=== PATIENT | female | born 1995 | race Caucasian/White ===

== ENCOUNTER 2018-01-21 12:04 | Emergency (ER) | payer SELFPAY ==
--- NOTE | 2018-01-21 14:27 | EDPHYS ---
Physician Documentation [facility] Name: Silvina Albert Age: 22 yrs Sex: Female : 1995 Arrival Date: 01/21/2018 Time: 12:05 Bed 13 Private MD: ED Physician Ricardo Walker HPI: 01/21 14:19 This 22 yrs old Female presents to ER via Ambulatory with complaints of kb Fever, Pain All Over. 14:19 The patient reports fever, that was measured at 102 degrees Fahrenheit, with an kb emergency department temperature of 99.0 degrees Fahrenheit. Onset: The symptoms/episode began/occurred last night. Modifying factors: there are no obvious modifying factors. Associated signs and symptoms: Pertinent positives: bodyaches. Severity of symptoms: At their worst the symptoms were moderate in the emergency department the symptoms have improved. The patient has not experienced similar symptoms in the past. The patient has not recently seen a physician. 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 - Social history:: Smoking status: Patient uses tobacco products, smokes one pack cigarettes per day. ROS: 14:19 ENT: Negative for injury, pain, and discharge, Neck: Negative for injury, pain, and kb swelling, Cardiovascular: Negative for chest pain, palpitations, and edema, Respiratory: Negative for shortness of breath, cough, wheezing, and pleuritic chest pain, Abdomen/GI: Negative for abdominal pain, nausea, vomiting, diarrhea, and constipation, Back: Negative for injury and pain, MS/Extremity: Negative for injury and deformity, Skin: Negative for injury, rash, and discoloration, Neuro: Negative for headache, weakness, numbness, tingling, and seizure. 14:19 Constitutional: Positive for body aches, fever, malaise, Negative for chills, fatigue, poor PO intake, weight loss. Exam: 14:19 Constitutional: This is a well developed, well nourished patient who is awake, alert, kb and in no acute distress. Head/Face: Normocephalic, atraumatic. Neck: Trachea midline, no thyromegaly or masses palpated, and no cervical lymphadenopathy. Supple, full range of motion without nuchal rigidity, or vertebral point tenderness. No Meningismus. Chest/axilla: Normal chest wall appearance and motion. Nontender with no deformity. No lesions are appreciated. Cardiovascular: Regular rate and rhythm with a normal S1 and S2. No gallops, murmurs, or rubs. Normal PMI, no JVD. No pulse deficits. Respiratory: Lungs have equal breath sounds bilaterally, clear to auscultation and percussion. No rales, rhonchi or wheezes noted. No increased work of breathing, no retractions or nasal flaring. Abdomen/GI: Soft, non-tender, with normal bowel sounds. No distension or tympany. No guarding or rebound. No evidence of tenderness throughout. Skin: Warm, dry with normal turgor. Normal color with no rashes, no lesions, and no evidence of cellulitis. MS/ Extremity: Pulses equal, no cyanosis. Neurovascular intact. Full, normal range of motion. Neuro: Awake and alert, GCS 15, oriented to person, place, time, and situation. Cranial nerves II-XII grossly intact. Motor strength 5/5 in all extremities. Sensory grossly intact. Cerebellar exam normal. Normal gait. 14:19 ENT: External ear(s): are unremarkable, Ear canal(s): are normal, TM's: are normal, Nose: is normal, Mouth: is normal, Posterior pharynx: Airway: normal, no evidence of obstruction, Tonsils: are normal in appearance, Uvula: normal, midline, swelling, is not appreciated, erythema, that is moderate. Vital Signs: 12:14 Pulse 114; Resp 19; Temp 99.0(O); Pulse Ox 100% on R/A; Weight 54.43 kg; Height 5 ft. 3 la1 in. (160.02 cm); 12:14 la1 13:08 BP 101 / 69; Pulse 94; Resp 17; Pulse Ox 100% on R/A; mh5 14:20 BP 96 / 62 LA Sitting (auto/reg); Pulse 86; Resp 18; Temp 99.0; Pulse Ox 100% on R/A; sg Pain 10/10; 12:14 Body Mass Index 21.26 (54.43 kg, 160.02 cm) la1 12:14 Unable to obtain BP, as cuff began inflating pt began screaming "ow that hurts, take it la1 off, take if off" attempted placement of BP cuff on leg, pt refuses, states pain is everywhere. MDM: 12:23 Patient medically screened. kb 14:19 Data reviewed: vital signs, nurses notes. Data interpreted: Pulse oximetry: on room air kb is 100 %. Interpretation: normal. Counseling: I had a detailed discussion with the patient and/or guardian regarding: the historical points, exam findings, and any diagnostic results supporting the discharge/admit diagnosis, lab results, the need for outpatient follow up, a family practitioner, to return to the emergency department if symptoms worsen or persist or if there are any questions or concerns that arise at home. 01/21 12:36 Order name: [place] Screen Profile; Complete Time: 13:32 kb 01/21 12:36 Order name: Flu; Complete Time: 13:26 kb 01/21 12:36 Order name: Strep; Complete Time: 13:26 kb 01/21 13:26 Order name: Throat Culture [facility] 01/21 14:26 Order name: Urine Dipstick--Ancillary (enter results) 01/21 14:26 Order name: Urine --Ancillary (enter results) 01/21 13:33 Order name: Urine Dipstick-Ancillary (obtain specimen); Complete Time: 14:24 kb Administered Medications: No medications were administered Disposition: 15:33 Co-signature as Attending Physician, Ricardo Walker MD I agree with the assessment and kdr plan of care. Disposition: 01/21/18 14:26 Discharged to Home. Impression: Fever, unspecified. - Condition is Stable. - Discharge Instructions: Viral Infections, [id number], Fever, Adult, [id number]. - Work release form, Medication Reconciliation Form, Thank You Letter, Antibiotic Education, Prescription Opioid Use form. - Follow up: Emergency Department; When: As needed; Reason: Worsening of condition. Follow up: Private Physician; When: 2 - 3 days; Reason: Recheck today's complaints, Continuance of care, Re-evaluation by your physician. Signatures: Dispatcher [employer] [facility] Pastora Nascimento, DIGITAL MUSIC INSTRUCTOR-C WALI-Ricardo Reynolds MD MD kdr Munoz, Edgar, SALES ORDER PROCESSOR SALES ORDER PROCESSOR Rashard Layne, RN RN la1
--- NOTE | 2018-01-21 14:27 | ER ---
Nurse's Notes [facility] Name: Silvina Albert Age: 22 yrs Sex: Female : 1995 Arrival Date: 01/21/2018 Time: 12:05 Bed 13 Private MD: Diagnosis: Fever, unspecified Presentation: 01/21 12:13 Presenting complaint: Patient states: my whole body hurts, I have had a fever since la1 yesterday and they had to give me half of a xanax to even sleep last night, pt states fever at home, ibuprofen taken at 0830. Transition of care: patient was not received from another setting of care. Onset of symptoms was January 21, 2018. Care prior to arrival: None. 12:13 Method Of Arrival: Ambulatory la1 12:13 Acuity: NOY 4 la1 Triage Assessment: 13:00 General: Appears in no apparent distress. uncomfortable, well groomed, well developed, sg well nourished, Behavior is calm, cooperative, appropriate for age. 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 - Social history:: Smoking status: Patient uses tobacco products, smokes one pack cigarettes per day. Screenin:00 Abuse screen: Denies threats or abuse. Denies injuries from another. Nutritional sg screening: No deficits noted. Tuberculosis screening: No symptoms or risk factors identified. Never had TB. Fall Risk None identified. Assessment: 13:00 General: Appears in no apparent distress. comfortable, well groomed, well developed, sg well nourished, Behavior is calm, cooperative, appropriate for age. Pain: Complains of pain in all over her body Quality of pain is described as aching. Neuro: No deficits noted. Cardiovascular: Heart tones S1 S2 present Capillary refill is brisk in bilateral fingers Patient's skin is warm and dry. Chest pain is denied. Respiratory: Airway is patent Respiratory effort is even, unlabored, Respiratory pattern is regular, symmetrical, Breath sounds are clear. GI: No signs and/or symptoms were reported involving the gastrointestinal system. : No signs and/or symptoms were reported regarding the genitourinary system. EENT: No deficits noted. Derm: Skin is pink, warm \\T\\ dry. Musculoskeletal: No deficits noted. Vital Signs: 12:14 Pulse 114; Resp 19; Temp 99.0(O); Pulse Ox 100% on R/A; Weight 54.43 kg; Height 5 ft. 3 la1 in. (160.02 cm); 12:14 la1 13:08 BP 101 / 69; Pulse 94; Resp 17; Pulse Ox 100% on R/A; mh5 14:20 BP 96 / 62 LA Sitting (auto/reg); Pulse 86; Resp 18; Temp 99.0; Pulse Ox 100% on R/A; sg Pain 10/10; 12:14 Body Mass Index 21.26 (54.43 kg, 160.02 cm) la1 12:14 Unable to obtain BP, as cuff began inflating pt began screaming "ow that hurts, take it la1 off, take if off" attempted placement of BP cuff on leg, pt refuses, states pain is everywhere. ED Course: 12:05 Patient arrived in ED. tw3 12:14 Triage completed. la1 12:15 Arm band placed on left wrist. la1 12:23 Pastora Nascimento FNP-C is PHCP. kb 12:23 Ricardo Walker MD is Attending Physician. kb 12:43 Ronaldo Frances, KEIRA is Primary Nurse. sg 13:00 Patient has correct armband on for positive identification. Placed in gown. Bed in low sg position. Side rails up X2. Pulse ox on. NIBP on. Head of bed elevated. 13:03 Initial lab(s) drawn, by nh, sent to lab. Flu and/or RSV swab sent to lab. Strep swab mh5 sent to lab. Inserted saline lock: 22 gauge in right antecubital area, using aseptic technique. Blood collected. 13:04 Strep Sent. mh5 13:04 Flu Sent. mh5 13:04 [place] Screen Profile Sent. 5 14:26 Throat Culture Sent. ag 14:40 No provider procedures requiring assistance completed. IV discontinued, intact, sg bleeding controlled, No redness/swelling at site. Pressure dressing applied. Administered Medications: No medications were administered Outcome: 14:26 Discharge ordered by . kb 14:40 Discharged to home ambulatory. sg 14:40 Condition: good 14:40 Discharge instructions given to patient, Instructed on discharge instructions, follow up and referral plans. safety practices, Demonstrated understanding of instructions, follow-up care. 14:45 Patient left the ED. em Signatures: Pastora Nascimento, WALI-C WALI-Ronaldo Willson, RN RN Juancarlos Jimenez, SKIN FORMER SKIN FORMER em Rashard Benedict RN RN la1 Virgilio, Daja Osborne [facility]5 Davidson, Leslee tw3
[2018-01-21 14:50] VITALS: TEMP 99; O2SAT 100
[2018-01-21 14:51] VITALS: BP 101/69
[2018-01-21 18:17] LABS: Urine Blood TRACE (NEG); Urine Glucose NEGATIVE (NEG); Urine Protein NEGATIVE (NEG); Urine pH 6.5 (5.0-7.0)
== END 2018-01-21 14:45 | disposition home or self-care (01) ==
LOC: ER 12:04
DX: R50.9 Fever, unspecified (principal); F17.210 Nicotine dependence, cigarettes, uncomplicated
CPT/HCPCS: 36415; 81003; 81025; 86308; 87070; 87081; 87804; 99284

== ENCOUNTER 2023-02-18 18:29 | Emergency (ER) | payer OTHER, SELFPAY ==
--- OUTSIDE RECORDS SUMMARY | 2023-02-18 18:33 | XMS REPORT | Continuity of Care Document ---
:1995 Author Organization [facility] t Address [address] [facility] [address] [place] [address] Care Team Providers Name Role Phone Pcp, Patient Does Not Have A Primary Care Physician [phone] MAKENZIE SANTAMARIA Attending Clinician Unavailable Makenzie Santamaria MD Attending Clinician Jacob Metz Attending Clinician Unknown, Attending Attending Clinician Unavailable JACOB ODONNELL Attending Clinician Unavailable Doctor Unassigned, [place] Attending Clinician Unavailable Doug Massey MD Attending Clinician DOUG MASSEY Attending Clinician Unavailable Xander Hickey MD Attending Clinician [phone], Lkj Nst Room Attending Clinician Unavailable Room, [facility] Nst Attending Clinician Unavailable Ultrasound, Ang-Mfm Attending Clinician Unavailable Anatoly Moses MD Attending Clinician Naeem Wong MD Attending Clinician ANATOLY MOSES Attending Clinician Unavailable ANATOLY MOSES Attending Clinician Unavailable Pob, [facility] Main Attending Clinician Unavailable Alvin Simmons MD Attending Clinician [facility]ending Clinician [phone] LULA BETH Attending Clinician Unavailable Zaina Martino MD Attending Clinician Gilbert Faustin MD Attending Clinician UNKNOWN, ATTENDING Attending Clinician Unavailable Linda Thorpe MD Attending Clinician [phone] Pob1, Acute Care Clinic Attending Clinician Unavailable [place] Bhardwaj Attending Clinician MAINE LEWIS Attending Clinician Unavailable Pcp, Patient Does Not Have A Attending Clinician [phone] SB LARKIN Attending Clinician Unavailable Sb Larkin MD Attending Clinician DOUG MASSEY Admitting Clinician Unavailable Doug Massey MD Admitting Clinician SB LARKIN Admitting Clinician Unavailable Payers Payer Name Policy Type Policy Number Effective Date Expiration Date [facility] [id number] 2020 [facility] [place] [facility] MEDICAID 00:00:00 Problems Condition Condition Condition Status Onset Resolution Last Treating Co mments Source Name Details Category Date Date Treatment Clinician Date Alpha Alpha Disease Active Univers thalassemi thalassemi 5-25 it y of a silent a silent 00:00: [place] carrier carrier [address] [place] [address] Multiparit Multiparit Disease Active 2019-10 U nivers y y 2-31 ity of 00:00: [address] Vaginal Vaginal Disease Active Overview: Univ ers odor odor 4-21 Formattin ity of 00:00: g of this [place] [address] note Medical might be Branch different from the original. ICD10 Diagnosis Term Feather Mixer Utility Allergies, Adverse Reactions, Alerts Allergy Allergy Status Severity Reaction(s) Onset Inactive Treating Comm ents Source Name Type Date Date Clinician NO KNOWN Drug Active Univers ALLERGIE Class ity of S [facility] Social History Social Habit Start Date Stop Date Quantity Comments Source History of Cigarette Smoker Universi ty of tobacco use [facility] Exposure to 2022-11-01 2022-11-11 Not sure [facility] SARS-CoV-2 00:00:00 10:00:00 [facility] (event) [place] Alcohol intake 2021-07-17 2021-07-17 Ex-drinker [facility] 00:00:00 00:00:00 (finding) [facility] Tobacco use and 2021-02-03 2021-02-03 Smokeless tobacco Un iversity of exposure 00:00:00 00:00:00 non-user [facility] Tobacco Comment 2021-02-03 2021-02-03 smokes 1 x per Unive rsity of 00:00:00 00:00:00 day [facility] Sex Ass[birth year] At [birth year] Universit y of 00:00:00 00:00:00 [facility] Smoking Status Start Date Stop Date Source Smokes tobacco daily 2021-02-03 00:00:00 Univers ity of [facility] Medications Ordered Filled Start Stop Current Ordering Indication Dosage Frequency Signature Comments Components Source Medication Medication Date Date Medication? Clinician (SIG) Name Name cephALEXin 2022- No [id number] 500mg Take 1 Univers (KEFLEX) 11-11 capsule by ity of 500 mg 00:00: 05:59 mouth 4 [place] capsule 00 :00 (four) Medical times Branch daily for 10 days. metroNIDAZO 2020- No [id number] 500mg Take 1 Univers LE 500 mg 06-29 tablet by ity of tablet 00:00: 04:59 mouth [place] 00 :00 every 12 Medical (twelve) Branch hours for 7 days. ibuprofen Yes [id number] 600mg Take 1 Univers 600 mg 8-29 102 tablet by ity of tablet 00:00: mouth [place] 00 every 6 Medical (six) Branch hours as needed (Pain). Take with food or milk. ibuprofen Yes [id number] 600mg Take 1 Univers 600 mg 8-29 102 tablet by ity of tablet 00:00: mouth [place] 00 every 6 Medical (six) Branch hours as needed (Pain). Take with food or milk. ibuprofen Yes [id number] 600mg Take 1 Univers 600 mg 8-29 102 tablet by ity of tablet 00:00: mouth [place] 00 every 6 Medical (six) Branch hours as needed (Pain). Take with food or milk. ibuprofen Yes [id number] 600mg Take 1 Univers 600 mg 8-29 102 tablet by ity of tablet 00:00: mouth [place] 00 every 6 Medical (six) Branch hours as needed (Pain). Take with food or milk. ibuprofen Yes [id number] 600mg Take 1 Univers 600 mg 8-29 102 tablet by ity of tablet 00:00: mouth [place] 00 every 6 Medical (six) Branch hours as needed (Pain). Take with food or milk. PNV 67-iron 2020-1 Yes [id number] 1{each} Take 1 Univers ps-folate 2-31 Each by ity of no.1-dha 00:00: mouth [place] (VITAFOL 00 daily. Medical ULTRA) 29 Branch mg iron- 1 mg-200 mg Cap PNV 67-iron 2020-1 Yes [id number] 1{each} Take 1 Univers ps-folate 2-31 Each by ity of no.1-dha 00:00: mouth [place] (VITAFOL 00 daily. Medical ULTRA) 29 Branch mg iron- 1 mg-200 mg Cap PNV 67-iron 2020- Yes [id number] 1{each} Take 1 Univers ps-folate 2-31 Each by ity of no.1-dha 00:00: mouth [place] (VITAFOL 00 daily. Medical ULTRA) 29 Branch mg iron- 1 mg-200 mg Cap PNV 67-iron 2020- Yes [id number] 1{each} Take 1 Univers ps-folate 2-31 Each by ity of no.1-dha 00:00: mouth [place] (VITAFOL 00 daily. Medical ULTRA) 29 Branch mg iron- 1 mg-200 mg Cap PNV 67-iron 2020- Yes [id number] 1{each} Take 1 Univers ps-folate 2-31 Each by ity of no.1-dha 00:00: mouth [place] (VITAFOL 00 daily. Medical ULTRA) 29 Branch mg iron- 1 mg-200 mg Cap Immunizations Ordered Filled Immunization Date Status Comments [facility] e Immunization Name Name PPD (TB) 2012-05-16 Completed University of 00:00:00 [facility] PPD (TB) 2012-05-16 Completed University of 00:00:00 [facility] Td 2012-04-30 Completed University of 00:00:00 [facility] Td 2012-04-30 Completed University of 00:00:00 [facility] TD, NOS 2012-04-30 Completed University of 00:00:00 [facility] TD, NOS 2012-04-30 Completed University of 00:00:00 [facility] TD, NOS 2012-04-30 Completed University of 00:00:00 [facility] Vital Signs Vital Name Observation Time Observation Value Comments Source Systolic blood 2022-11-11 16:05:00 102 mm[Hg] Univer sity of pressure [facility] Diastolic blood 2022-11-11 16:05:00 70 mm[Hg] Unive rsity of pressure [facility] Heart rate 2022-11-11 16:05:00 88 /min [facility] Body temperature 2022-11-11 16:05:00 37.17 Abigail [facility] Respiratory rate 2022-11-11 16:05:00 17 /min [facility] Body height 2022-11-11 16:05:00 157.5 cm [facility] Body weight 2022-11-11 16:05:00 58.695 kg [facility] BMI 2022-11-11 16:05:00 23.67 kg/m2 [facility] Oxygen saturation in 2022-11-11 16:05:00 98 /min [facility] Arterial blood by [place] [facility] Pulse oximetry [place] Procedures Procedure Date / Time Performed Performing Clinician Sour e ASSIGNMENT OF BENEFITS 2022-11-11 15:59:53 Doctor Unassigned, No [facility] Encounters Start End Encounter Admission Attending Care Care Encounter Source Date/Time Date/Time Type Type Clinicians Facility Department ID 2021-08-09 Outpatient P [facility] EMILI [id number] Univers 22:05:31 ity of [facility] 2021-08-09 Emergency [facility] [id number] Univers 22:04:22 ity of [facility] 2022-12-13 2022-12-13 Gayle Santamaria [facility] [id number] Univers 00:00:00 00:00:00 [facility] 350.1.13.10 it y of [place] 4.2.7.2.686 [place] [facility] - [phone] Med ical [facility] 419 Branch 2022-11-11 2022-11-11 Urgent Jacob Odonnell [facility] 1.2.840.114 [id number] Univers 09:40:00 10:00:00 Care Unknown, Attending HEALTH 350.1.13.10 ity of [place] 4.2.7.2.686 Lg as HANNA?BLEA [phone] Ne alison [address] MEDICAL OFFICE BUILDING 2022-11-11 2022-11-11 [facility] [id number] Univers 09:40:00 09:40:00 RANIA ity of [facility] 2022-11-11 2022-11-11 Orders Doctor GHISLAINE 1.2.840.114 [id number] Univers 00:00:00 00:00:00 Only Unassigned, [place] DELIA 350.1.13.10 ity of [place] [facility] 4.2.7.2.686 Lg as [id number] [address] 2022-01-10 2022-01-10 Orders Doctor GHISLAINE 1.2.840.114 [id number] Univers 00:00:00 00:00:00 Only Unassigned, [place] DELIA 350.1.13.10 ity of [place] [facility] 4.2.7.2.686 Lg as [id number] [address] 2022-01-06 2022-01-06 Telephone Doug Massey [facility] 1.2.840.11 [id number] Univers 00:00:00 00:00:00 AZAM 350.1.13.10 it y of WOM[place] 4.2.7.2.686 [place] [id number] [address] 2021-12-24 2021-12-24 Telephone Doug Massey [facility] 1.2.840.11 [id number] Univers 00:00:00 00:00:00 AZAM 350.1.13.10 it y of W[place] 4.2.7.2.[place] [id number] [address] 2021-12-24 2021-12-24 Orders Doctor GHISLAINE 1.2.840.114 [id number] Univers 00:00:00 00:00:00 Only Unassigned, AL[place] DELIA 350.1.13.10 ity of [place] [facility] 4.2.7.2.686 Lg as [id number] [address] 2021-12-21 2021-12-21 Telephone Doug Massey [facility] 1.2.840.11 [id number] Univers 00:00:00 00:00:00 AZAM 350.1.13.10 it y of W[place] 4[place]2.[place].2.[place] [id number] [address] 2021-07-17 2021-07-17 Routine Doug Massey MDHARVEY 1.2.840.114 [id number] Univers 10:00:24 10:15:24 [place] 350.1.13.10 ity of Visit [place] 4.2.7.2.686 Lga s Professio [phone] Ne dical [address] 2021-07-17 2021-07-17 Outpatient R DOUG MASSEY [facility] [id number] Univers 10:15:00 10:15:00 ity of [facility] 2021-07-16 2021-07-16 Outpatient R DOUG MASSEY [facility] [id number] Univers 13:00:00 13:00:00 ity of [facility] 2021-06-29 2021-06-29 Case Doug Massey 1.2.840.114 [id number] Univers 00:00:00 00:00:00 Management AZAM 350.1.13.10 [place]2.[place] [facility] [id number] [address] 2021-06-29 2021-06-29 Patient Doug Massey 1.2.840.114 [id number] Univers 00:00:00 00:00:00 Secure Msg [place] 350.1.13.10 it[place]2.[place] [facility] [phone] [address] 2021-06-25 2021-06-25 Routine Doug Massey 1.2.840.114 [id number] Univers 13:45:41 14:27:38 [place] 350.1.13.10 i ty of Visit Women's [place].2.7.2.686 [place] [id number] [address] 2021-06-25 2021-06-25 Outpatient R DOUG MASSEY [facility] [id number] Univers 13:45:00 13:45:00 ity of [facility] 2021-06-05 2021-06-07 Hospital Doug Massey [facility] 1.2.840.114 [id number] Univers 10:27:00 12:40:00 Encounter [place] 350.1.13.10 ity of [place] 4.2.7.2.686 [place] [id number] [place] [id number] Branch 2021-06-05 2021-06-07 Hospital [place] Massey [place] 1.2.840.114 [id number] Univers 10:27:00 12:40:00 Encounter [place] 350.1.13.10 ity of [place].2.7.2.686 [place] [phone] [place] [address] Branch 2021-06-05 2021-06-05 Anesthesia Alquicira-M [facility] 1.2.840.114 [id number] Univers 18:36:00 23:42:00 Event Neftali dillon 350.1.13.10 i ty of [place] 4.2.7.2.686 Lg as [place] [id number] [place] [address] Branch 2021-06-05 2021-06-05 Anesthesia Alquicira-M [facility] 1.2.840.114 [id number] Univers 18:36:00 23:42:00 Event santanaNeftali romero 350.1.13.10 i ty of [place] 4.2.7.2.686 Lg as [place] [id number] [address] 2021-06-05 2021-06-05 Orders Doctor GHISLAINE 1.2.840.114 [id number] Univers 00:00:00 00:00:00 Only Unassigned, [place] DELIA 350.1.13.10 ity of [place] [facility] 4.2.7.2.686 Lg as [id number] [address] 2021-06-05 2021-06-05 Orders Doctor SCANLON 1.2.840.114 [id number] Univers 00:00:00 00:00:00 Only Unassigned, [place] DELIA 350.1.13.10 ity of [place] [facility] 4.2.7.2.686 Lg as [phone] [address] 2021-06-04 2021-06-04 Routine 1, Yeimi Nst Room [facility] 1.2.840. 114 [id number] Univers 10:00:36 10:53:02 Doug Massey 350.1.13.10 ity of Visit Women's [place].2.[place] [id number] [address] 2021-06-04 2021-06-04 Routine 1, Lkj Nst Room [facility] 1.2.840. 114 [id number] [facility] 10:00:36 10:53:02 Doug Massey 350.1.13.10 ity of Visit Women's [place].2.[place].2.[place] [id number] [address] 2021-06-04 2021-06-04 Outpatient R [facility] [id number] Univers 10:00:00 10:00:00 ity of [facility] 2021-06-02 2021-06-02 Outpatient R DOUG MASSEY [facility] [id number] Univers 11:15:00 11:15:00 ity of [facility] 2021-06-02 2021-06-02 Outpatient R [facility] [id number] Univers 11:00:00 11:00:00 ity of [facility] 2021-06-02 2021-06-02 Outpatient R DOUG MASSEY [facility] [id number] Univers 11:00:00 11:00:00 ity of [facility] 2021-06-02 2021-06-02 Routine Room, [facility] 1.2.840.1 [id number] Univers 10:04:40 10:19:40 Doug Massey 350.1.13.10 ity of [place].2.[place] Profess[place] [phone] Ne dical nal [address] [place] [address] 2021-06-02 2021-06-02 Routine Room, [facility] 1.2.840.1 [id number] Univers 10:04:40 10:19:40 Doug Massey 350.1.13.10 ity of [place] 4.[place].2.[place] Profess[place] [phone] Ne dical nal [address] [place] [address] 2021-05-28 2021-05-28 Routine Room, [facility] 1.2.840.1 [id number] Univers 10:41:38 11:33:16 Doug Massey 350.1.13.10 ity of Visit [place] Profess[place] [phone] Ne dical [address] 2021-05-28 2021-05-28 Outpatient R DOUG MASSEY [facility] [id number] Univers 11:15:00 11:15:00 ity [facility] 2021-05-28 2021-05-28 Outpatient R [facility] [id number] Univers 11:00:00 [facility] 2021-05-26 2021-05-26 Routine Doug Massey [facility] Daily 1.2.840.114 [id number] Univers 11:06:06 12:09:19 [place] 350.1.13.10 i ty of Visit Women's 4.2.[place].2.686 [place] [id number] [address] 2021-05-26 2021-05-26 Outpatient R DOUG MASSEY [facility] [id number] Univers 11:15:00 [facility]:15[facility]00 [facility] 2021-05-21 2021-05-21 Outpatient R DOUG MASSEY [facility] [id number] Univers 11:15:00 11:15:00 ity [facility] 2021-05-19 2021-05-19 Routine Doug Massey MDHARVEY Daily 1.2.840.114 [id number] Univers 11:14:13 11:29:13 [place] 350.1.13.10 i ty of Visit [place] 4.2.[place].2.[place] [id number] [address] 2021-05-19 2021-05-19 Outpatient R DOUG MASSEY [facility] [id number] Univers 11:15:00 11:15:00 ity [facility] 2021-05-14 2021-05-14 Routine Doug Massey [facility] Daily 1.2.840.114 [id number] Univers 11:12:21 11:27:21 [place] 350.1.13.10 i ty of Visit Women's 4.2.7.2.686 [facility] [id number] [address] 2021-05-14 2021-05-14 Outpatient R DOUG MASSEY [facility] [id number] Univers 11:15:00 11:15:00 ity of [facility] 2021-05-12 2021-05-12 Routine Bryson Doug [facility] 1.2.840.114 [id number] Univers 13:52:17 15:12:11 [place] 350.1.13.10 i ty of Visit Women's 4.2.7.2.686 [facility] [id number] [address] 2021-05-12 2021-05-12 Outpatient R DOUG MASSEY [facility] [id number] Univers 13:45:00 13:45:00 ity of [facility] 2021-05-12 2021-05-12 Outpatient R BRYSON DOUG [facility] [id number] Univers 11:15:00 11:15:00 ity [facility] 2021-05-12 2021-05-12 Orders Doctor GHISLAINE 1.2.840.114 [id number] Univers 00:00:00 00:00:00 Only Unassigned, [place] DELIA 350.1.13.10 ity of [place] [facility] 4.2.7.2.686 Lg as [id number] [place] [address] Branch 2021-05-11 2021-05-11 [employer] Laboratory Director [facility]trasound[facility] 1.2 .840.114 [id number] Univers 11:11:06 11:33:54 Visit Anatoly Moses FLIGHT COORDINATOR 350.1.13.10 ity of Naeem Wong [facility] 4.2.7.2.686 [place] MATERNAL [id number] [facility] ical & CHILD [address] [place] [address] 2021-05-11 2021-05-11 Outpatient P ANATOLY MOSES [facility] [id number] Univers 11:30:00 11:30:00 ANATOLY MOSES ity [facility] 2021-05-07 2021-05-07 Outpatient R DOUG MASSEY [facility] [id number] Univers 13:00:00 13:00:00 ity [facility] 2021-05-05 2021-05-05 Outpatient R DOUG MASSEY [facility] [id number] Univers 11:15:00 11:15:00 ity of [facility] 2021-04-30 2021-04-30 Outpatient R DOUG MASSEY [facility] [id number] Univers 11:15:00 11:15:00 ity of [facility] 2021-04-28 2021-04-28 Outpatient R DOUG MASSEY [facility] [id number] Univers 13:15:00 13:15:00 ity [facility] 2021-04-23 2021-04-23 Outpatient R DOUG MASSEY [facility] [id number] Univers 13:00:00 13:00:00 ity [facility] 2021-04-21 2021-04-21 Outpatient R DOUG MASSEY [facility] [id number] Univers 11:15:00 11:15:00 ity [facility] 2021-04-16 2021-04-16 Outpatient R DOUG MASSEY [facility] [id number] Univers 13:00:00 13:00:00 ity [facility] 2021-04-14 2021-04-14 Outpatient R DOUG MASSEY [facility] [id number] Univers 13:30:00 13:30:00 ity [facility] 2021-04-14 2021-04-14 [employer] Laboratory Director [facility]trasound[facility] 1.2 .840.114 [id number] Univers 11:03:04 11:48:04 Visit Anatoly Moses FLIGHT COORDINATOR [facility]1.13.10 [facility] 4.2.7.2.686 Lg as MATERNAL [id number] [facility] ical & CHILD [address] [place] [address] 2021-03-30 2021-03-30 Outpatient R DOUG MASSEY [facility] [id number] Univers 13:00:00 13:00:00 ity [facility] 2021-03-23 2021-03-23 Outpatient R DOUG MASSEY [facility] [id number] Univers 14:45:00 14:45:00 ity of [facility] 2021-03-23 2021-03-23 [employer] Laboratory Director Cindy Langley Lab Main [facility] 1.2.8 40.114 [id number] Univers 14:19:38 14:34:38 Visit Doug Masseyton 350.1.13.10 ity of [place] 4.2.7.2.686 [place] [facility] [phone] Ne dical nal [address] [facility] 2021-03-23 2021-03-23 Orders Doctor GHISLAINE 1.2.840.114 [id number] Univers 00:00:00 00:00:00 Only Unassigned, ALMA DELIA 350.1.13.10 ity of [facility] 4.2.7.2.686 [facility] [phone] [facility] 009 [place] 2021-03-16 2021-03-16 Outpatient R ELIEZER MASSEYN [facility] [id number] Univers 14:45:00 14:45:00 ity of [facility] 2021-03-16 2021-03-16 [employer] [facility] [place] 1.2 .840.114 [id number] Univers 11:19:08 11:49:08 Visit Anatoly Moses FLIGHT COORDINATOR 350.1.13.10 ity of Alvin Simmons [facility] 4.2.7.2.686 [place] MATERNAL [id number] [facility] ical & CHILD [address] [place] [address] 2021-03-06 2021-03-06 Hospital Doug Massey [facility] 1.2.840.114 [id number] Univers 17:09:00 21:40:00 Encounter [place] 350.1.13.10 ity of [place] 4.2.7.2.686 [place] [id number] [facility] 083 [place] 2021-03-03 2021-03-03 Outpatient R BRYSON DOUG [facility] [id number] Univers 11:00:00 11:00:00 ity of [facility] 2021-02-16 2021-02-16 [employer] Laboratory Director [facility]tras[facility], [facility] [place] 1.2 .840.114 [id number] Univers 10:59:45 12:17:55 Visit Anatoly Moses FLIGHT COORDINATOR 350.1.13.10 ity of [facility] 4.2.7.2.686 Lg as MATERNAL [phone] [facility] ical & CHILD [address] [facility] 2021-02-16 2021-02-16 Outpatient P [facility] [id number] Univers 11:30:00 11:30:00 ity [facility] 2021-02-03 2021-02-03 Outpatient R DOUG MASSEY [facility] [id number] Univers 11:00:00 11:00:00 ity of [facility] 2021-01-20 2021-01-20 Abstract Akinsiautumn, [facility] 1.2.840.114 [id number] Univers 00:00:00 00:00:00 Lula Arguello FLIGHT COORDINATOR 350.1.13.10 ity [facility] 4.2.7.2.686 Lg as MATERNAL [phone] [facility] ical & CHILD 107 [facility] 2021-01-19 2021-01-19 [employer] Laboratory Director [facility] 1.2 .840.114 [id number] Univers 10:54:38 11:54:38 Visit Naeem Wong FLIGHT COORDINATOR 350.1.13.10 ity [facility] 4.2.7.2.686 Lg as MATERNAL [phone] [facility] ical & CHILD [address] [place] [address] 2021-01-19 2021-01-19 Outpatient P [facility] [id number] Univers 10:45:00 10:45:00 ity of [facility] 2021-01-16 2021-01-16 Outpatient R BRYSON DOUG [facility] [id number] Univers 13:15:00 13:15:00 ity of [facility] 2021-01-16 2021-01-16 [employer] Laboratory Director Cindy Langley [facility] Main [facility] 1.2.8 40.114 [id number] Univers 12:45:56 13:00:56 Visit Eliezer Masseyn [place] 350.1.13.10 ity [facility] 4.2.7.2.686 [place] Professio [id number] Ne dic[address] 2021-01-16 2021-01-16 Orders Doctor GHISLAINE 1.2.840.114 [id number] Univers 00:00:00 00:00:00 Only Unassigned, AL[place] DELIA 350.1.13.10 ity [facility] 4.2.7.2.686 Lg as [id number] [address] 2021-01-06 2021-01-06 Outpatient R DOUG MASSEY [facility] [id number] Univers 16:00:00 16:00:00 ity [facility] 2020-12-05 2020-12-05 Outpatient R DOUG MASSEY [facility] [id number] Univers 11:00:00 11:00:00 ity [facility] 2020-12-02 2020-12-02 Outpatient R DOUG MASSEY [facility] [id number] Univers 14:45:00 14:45:00 ity [facility] 2020-12-02 2020-12-02 Outpatient R [facility] [id number] Univers 14:30:00 14:30:00 ity [facility] 2020-12-02 2020-12-02 Orders Doctor GHISLAINE 1.2.840.114 [id number] Univers 00:00:00 00:00:00 Only Unassigned, [place] DELIA 350.1.13.10 ity [facility] 4.2.7.2.686 Lg as [phone] [address] 2020-11-26 2020-11-26 Outpatient R [facility] [id number] Univers 10:30:00 10:30:00 ity of [facility] 2020-11-06 2020-11-06 Outpatient R IGNACIA, [facility] [id number] Univers 10:45:00 10:45:00 LULA simms o f [facility] 2020-11-04 2020-11-04 Outpatient R DOUG MASSEY [facility] [id number] Univers 13:30:00 13:30:00 ity [facility] 2020-11-04 2020-11-04 Abstract [facility] [id number] Univers 00:00:00 00:00:00 Lula Arguello FLIGHT COORDINATOR [id number] ity of REGIONAL [id number] Lg as MATERNAL [phone] Med ical & CHILD 107 [facility] 2020-11-03 2020-11-03 [employer] Laboratory Director Ultrasound, Yash [facility] 1.2 .[id number] Univers 11:29:15 11:59:15 Visit Lula Beth FLIGHT COORDINATOR [id number]. 10 ity of Alvin Simmons [facility] [id number] [place] MATERNAL [phone] Med ical & CHILD 369 [facility] 2020-11-03 2020-11-03 Outpatient P [facility] [id number] Univers 11:15:00 11:15:00 ity of [facility] 2020-10-09 2020-10-09 Initial [facility] [id number] Univers 13:13:29 14:21:43 Lula Arguello FLIGHT COORDINATOR [id number] ity of Visit [facility] [id number] Lg as MATERNAL [phone] [facility] ical & CHILD [address] [place] [address] 2020-10-09 2020-10-09 Outpatient R IGNACIA [facility] [id number] Univers 13:00:00 13:00:00 LULA esqueda f [facility] 2020-10-09 2020-10-09 Orders Doctor GHISLAINE [id number] Univers 00:00:00 00:00:00 Only Unassigned, ALMA DELIA [id number] ity of [place] [facility] [id number] Lg as [phone] [facility] [address] [place] 2020-04-11 2020-04-12 Urgent [facility] [id number] Univers 10:58:27 15:18:18 Care Unknown, Attending PRIMARY [id number] ity of CARE [id number] [place] MIGDALIAANUMSYLWIA [phone] Ne dical [address] [place] 2020-04-12 2020-04-12 Telephone [facility]ner, [facility] hospital 1.2.840.114 [id number] Univers 00:00:00 00:00:00 PRIMARY [id number] it y [id number] [id number] [facility] [place] 2020-04-11 2020-04-11 [facility] 1.2.840.114 [id number] Univers 12:22:00 23:59:00 Encounter Gilbert PRIMARY [id number] ity of [facility] [id number] [phone] [facility] [address] [place] 2020-04-11 2020-04-11 Outpatient R FERN, [facility] [id number] Univers 10:00:00 10:00:00 ATTENDING ity [facility] 2020-01-17 2020-01-17 Telephone GHISLAINE Thorpe [id number] Univers 00:00:00 00:00:00 Linda BOAZ [id number] i ty of [facility] [id number] Lg as [id number] [address] 2020-01-17 2020-01-17 [facility] [id number] Univers 00:00:00 00:00:00 [facility] [id number] i ty of [facility] [id number] Lg as Professio [phone] [facility] [address] [place] Office [facility] 2020-01-15 2020-01-15 Urgent Pob1, Acute Care Clinic [facility] 1. 2.840.114 [id number] Univers 15:09:20 15:29:20 Care [place] [id number] ity of [place] [id number] Lg as Professio [phone] [address] Office [facility] 2020-01-15 2020-01-15 Outpatient R BECKA [facility] [id number] Univers 15:20:00 15:20:00 MAINE mendez [facility] 2020-01-15 2020-01-15 Telephone [facility] [id number] Univers 00:00:00 00:00:00 Patient Health [id number] it y of Does Not [place] [id number] Te chandni Have A Professio [phone] Ne dical nal [address] 2019-11-23 2019-11-23 Emergency X [facility] ERT [id number] Univers 02:59:38 05:11:00 SB moorey of [facility] 2019-11-23 2019-11-23 Emergency [facility] [id number] Univers 02:59:38 05:11:00 Sb Arguello [place] [id number] i ty of [place] [id number] [facility] [phone] [facility] [address] Results This patient has no known results.
--- NOTE | 2023-02-18 19:23 | RAD REPORT ---
EXAM DESCRIPTION: CT - Ct Stroke Brain Wo Cont - 02/18/2023 7:03 pm CLINICAL HISTORY: tingling Headache, drowsiness, CVA symptomology COMPARISON: <Comparisons> TECHNIQUE: All CT scans are performed using dose optimization technique as appropriate and may inclu de automated exposure control or mA/KV adjustment according to patient size. FINDINGS: No intracranial hemorrhage, hydrocephalus or extra-axial fluid collection.No areas of brai n edema or evidence of midline shift. The paranasal sinuses and mastoids are clear. The calvarium is intact. IMPRESSION: No acute intracranial abnormality. If there is continued clinical concern for CVA, MR imaging of the brain would be recommended. The findings were discussed with Rashard Benedict in the ER on 02/18/2023 at 6:51 p.m. by telephone.
[2023-02-18 19:31] LABS: Absolute Lymphocytes (CBC) 3.5 K/uL (0.7-4.9); Lymphocytes % 24.8 % (15.3-44.8); MCV 88.6 fL (80-100); MPV 8.4 fL (7.6-11.3); RBC Red Blood Cell Count 4.85 M/uL (3.86-4.86)
[2023-02-18] MEDS ORDERED: DIPHENHYDRAMINE 50 MG/ML VIAL ONE (20:17)
[2023-02-18] MEDS ORDERED: METOCLOPRAMIDE 10 MG/2mL INJ ONE (20:17)
[2023-02-18] MEDS ORDERED: ACETAMINOPHEN 500 MG TAB ONE (20:17)
[2023-02-18] MEDS ORDERED: Magnesium Sulfate 2gm IVPB 2 G/50 ML BAG IV ONE (20:18)
[2023-02-18] MEDS ORDERED: NA CHLORIDE 0.9% 1,000 ML ONE (20:18)
[2023-02-18 20:19] LABS: Albumin 4.1 g/dL (3.4-5.0); Bilirubin Total 0.4 mg/dL (0.2-1.0); Magnesium 2.1 mg/dL (1.6-2.4); Potassium 3.8 mEq/L (3.5-5.1); Protein, Total 7.6 g/dL (6.4-8.2); Thyroid Stimulating Hormone 0.953 uIU/mL (0.358-3.740); Troponin High Sensitivity 3.3 pg/mL (<58.9)
--- NOTE | 2023-02-18 20:50 | EDPHYS ---
Physician Documentation [facility] Name: Silvina Albert Age: 27 yrs Sex: Female : 1995 Arrival Date: 02/18/2023 Time: 18:29 Bed 7 Private MD: ED Physician Cayden Alan HPI: 02/18 19:24 This 27 yrs old Female presents to ER via Ambulatory with complaints of TINGLING ON ONE rt SIDE OF FACE. 19:24 Presents to the ED with a tingling to the right side of the face starting at about 310. rt She also had a blurred vision on the right eye. That is since resolved. The patient states that the tingling has significant improved, now she only describes a heaviness on the right side of her face. Denies any focal weakness. Denies other numbness, other acute complaints at this time. Symptoms are mild in severity, no other aggravating or alleviating factors.. Historical: - Allergies: 18:35 No Known Allergies; hb - Immunization history:: Adult Immunizations up to date. - Family history:: not pertinent, pertinent for. - Social history:: Smoking status: Patient denies any tobacco usage or history of. ROS: 19:24 Constitutional: Negative for fever, chills, and weight loss, Cardiovascular: Negative rt for chest pain, palpitations, and edema, Respiratory: Negative for shortness of breath, cough, wheezing, and pleuritic chest pain, Abdomen/GI: Negative for abdominal pain, nausea, vomiting, diarrhea, and constipation, MS/Extremity: Negative for injury and deformity. 19:24 Neuro: Positive for tingling, Negative for altered mental status, weakness. Exam: 19:24 Radiologist reports: no acute findings rt 19:24 Constitutional: This is a well developed, well nourished patient who is awake, alert, and in no acute distress. Head/Face: Normocephalic, atraumatic. Chest/axilla: Normal chest wall appearance and motion. Nontender with no deformity. No lesions are appreciated. Cardiovascular: Regular rate and rhythm with a normal S1 and S2. No gallops, murmurs, or rubs. Normal PMI, no JVD. No pulse deficits. Respiratory: Lungs have equal breath sounds bilaterally, clear to auscultation and percussion. No rales, rhonchi or wheezes noted. No increased work of breathing, no retractions or nasal flaring. Abdomen/GI: Soft, non-tender, with normal bowel sounds. No distension or tympany. No guarding or rebound. No evidence of tenderness throughout. MS/ Extremity: Pulses equal, no cyanosis. Neurovascular intact. Full, normal range of motion. Psych: Awake, alert, with orientation to person, place and time. Behavior, mood, and affect are within normal limits. 19:24 Eyes: Extraocular muscles intact, no visual field deficits. 19:24 ECG was reviewed by the Attending Physician. 19:24 Neuro: Slight sensory deficit on the right side of the face, cranial nerves otherwise intact, speech normal, no ataxia [id number], strength and sensation intact in upper and lower extremities. Vital Signs: 18:34 BP 131 / 82; Pulse 80; Resp 16; Temp 97.8; Pulse Ox 100% on R/A; Weight 54.43 kg; hb Height 5 ft. 2 in. ; Pain 4/10; 19:44 BP 110 / 79; Pulse 77; Resp 19; Pulse Ox 100% on R/A; kd3 20:20 BP 108 / 76; Pulse 84; Resp 16; Pulse Ox 100% on R/A; kd3 18:34 Body Mass Index 21.95 (54.43 kg, 157.48 cm) hb 18:34 Pain Scale: Adult hb MDM: 18:37 Patient medically screened. rt 18:52 ED course: Ct head negative per radiology. la1 20:07 ED course: Signed out to me by Dr. Clay. Per signout, Dr. Clay had a long rn discussion with patient regarding high possibility of complex migraine, had an informed discussion regarding TNKase given presentation within window, and Dr. Clay and patient decided jointly against TNKase. Pt went on to report headache and headache medication ordered. . 20:22 ED course: Spoke with patient, wants to go home, does not want to be admitted for MRI rn and further eval, understands risks and benefits. Reports neurological symptoms had resolved by the time she arrived, the only residual symptom is her headache. Has had headaches since teenage years but never this severe. . 20:48 Differential diagnosis: CVA, TIA, metabolic disorder, complex migraine. Data reviewed: rn vital signs, nurses notes, lab test result(s), radiologic studies, CT scan, and as a result, I will discharge patient. Consideration of Admission/Observation Escalation of care including admission/observation considered. Pt refused admission. I considered the following discharge prescriptions or medication management in the emergency department Medications were administered in the Emergency Department. See MAR. Counseling: I had a detailed discussion with the patient and/or guardian regarding: the historical points, exam findings, and any diagnostic results supporting the discharge/admit diagnosis, lab results, radiology results, the need for outpatient follow up, to return to the emergency department if symptoms worsen or persist or if there are any questions or concerns that arise at home. Response to treatment: the patient's symptoms have markedly improved after treatment, and as a result, I will discharge patient. Special discussion: Based on the history and exam findings, there is no indication for further emergent testing or inpatient evaluation. I discussed with the patient/guardian the need to see the neurologist for further evaluation of the symptoms. ED course: Pt had nurse pull out IV, wants to go home at this time, states feels fine, is ambulatory to bathroom, understands risks and benefits of our discussion. Return precautions given and understood. . 02/18 18:59 Order name: CBC with Diff; Complete Time: 19:48 rt 02/18 18:59 Order name: CMP; Complete Time: 20:41 rt 02/18 18:59 Order name: Troponin High Sensitivity; Complete Time: 20:41 rt 02/18 18:59 Order name: Test, Serum; Complete Time: 20:41 rt 02/18 18:59 Order name: Magnesium; Complete Time: 20:41 rt 12 18:59 Order name: TSH; Complete Time: 20:41 rt 12 18:59 Order name: CPK; Complete Time: 20:41 rt 12 19:03 Order name: Ct Stroke Brain Wo Cont; Complete Time: 19:31 EDMS 02/18 18:59 Order name: EKG; Complete Time: 18:59 rt 02/18 18:59 Order name: EKG - Nurse/Tech; Complete Time: 19:08 rt EC:24 Rate is 78 beats/min. Rhythm is regular, Normal Sinus Rhythm with No ectopy. QRS [place] rt is Normal. IN interval is normal. QRS interval is normal. QT interval is normal. No Q waves. T waves are Normal. No ST changes noted. Interpreted by me. Administered Medications: 20:10 Drug: metoCLOPramide IVP 10 mg Route: IVP; Site: right antecubital; ha1 20:58 Follow up: Response: No adverse reaction kd3 20:13 Drug: diphenhydrAMINE IVP 25 mg Route: IVP; Site: right antecubital; ha1 20:58 Follow up: Response: No adverse reaction kd3 20:13 Drug: NS 0.9% IV 1000 ml Route: IV; Rate: 1 bolus; Site: right antecubital; ha1 20:54 Follow up: IV Status: Completed infusion kd3 20:15 Drug: Acetaminophen PO 1000 mg Route: PO; ha1 20:57 Follow up: Response: No adverse reaction kd3 20:20 Drug: Magnesium Sulfate IVPB 2 grams Route: IVPB; Infused Over: 2 hrs; Site: right ha1 antecubital; 20:57 Follow up: IV Status: Completed infusion kd3 Disposition: 22:42 Co-signature as Attending Physician, Cayden Alan MD I reviewed the patient's care rn provided by the Advanced Practice Provider and agree with the diagnosis and treatment plan. Disposition Summary: 02/18/23 20:49 Discharge Ordered Location: Home rn Problem: new rn Symptoms: have improved rn Condition: Stable rn Diagnosis - Migraine with aura, intractable, without status migrainosus rn - Paresthesia of skin rn Followup: rn - With: Tim Gorman MD - When: As needed - Reason: Recheck today's complaints, Re-evaluation by your physician Discharge Instructions: - Discharge Summary Sheet rn - Migraine Headache rn - Paresthesia rn Forms: - Medication Reconciliation Form rn - Thank You Letter rn - Antibiotic biomedical engineering internship - Prescription Opioid Use rn Signatures: Dispatcher [employer] EDMS Cayden Alan MD MD rn Attema, Lee, ASSOCIATE MERCHANDISE PLANNER-C ASSOCIATE MERCHANDISE PLANNER-Cla1 Emelyn Godinez RN RN Frances Corral RN RN kd3 Basia Durant, RN RN ha1 Fransisco Clay MD MD rt Corrections: (The following items were deleted from the chart) 19:01 19:00 Head Brain Wo Cont+CT.RAD.BRZ ordered. EDMS EDMS
--- NOTE | 2023-02-18 20:50 | ER ---
Nurse's Notes [facility] Name: Silvina Albert Age: 27 yrs Sex: Female : 1995 Arrival Date: 02/18/2023 Time: 18:29 Bed 7 Private MD: Diagnosis: Migraine with aura, intractable, without status migrainosus;Paresthesia of skin Presentation: 02/18 18:34 Chief complaint: Blurred vision in right eye and tingling of right face and right arm hb that started at 1530 today. Coronavirus screen: At this time, the client does not indicate any symptoms associated with coronavirus-19. Ebola Screen: No symptoms or risks identified at this time. Initial Sepsis Screen: Does the patient meet any 2 criteria? No. Patient's initial sepsis screen is negative. Does the patient have a suspected source of infection? No. Patient's initial sepsis screen is negative. Risk Assessment: Do you want to hurt yourself or someone else? Patient reports no desire to harm self or others. Onset of symptoms was February 18, 2023. 18:34 Method Of Arrival: Ambulatory hb 18:34 Acuity: NOY 2 hb Triage Assessment: 19:45 General: Appears in no apparent distress. Behavior is calm, cooperative. Pain: kd3 Complains of pain in hedache. Neuro: Level of Consciousness is awake, alert, obeys commands, Oriented to person, place, time, situation. Cardiovascular: Patient's skin is warm and dry. Historical: - Allergies: 18:35 No Known Allergies; hb - Immunization history:: Adult Immunizations up to date. - Family history:: not pertinent, pertinent for. - Social history:: Smoking status: Patient denies any tobacco usage or history of. Screenin:[address] [facility] ED Fall Risk Assessment (Adult) History of falling in the last 3 months, kd3 including since admission No falls in past 3 months (0 pts) Confusion or Disorientation No (0 pts) Intoxicated or Sedated No (0 pts) Impaired Gait No (0 pts) Mobility Assist Device Used No (0 pt) Altered Elimination No (0 pt) Score/Fall Risk Level 0 - 2 = Low Risk Maintained a safe environment. Abuse screen: Denies threats or abuse. Denies injuries from another. Nutritional screening: No deficits noted. Tuberculosis screening: No symptoms or risk factors identified. Assessment: 18:36 Reassessment: CODE STROKE CALLED, PT TO CT VIA WHEELCHAIR WITH BRYAN RN. hb 19:30 General: Appears comfortable, Behavior is calm, cooperative. Pain: Complains of pain in ha1 tingling on the right side of her face. Pain does not radiate. Pain currently is 6 out of 10 on a pain scale. Quality of pain is described as tingling. 19:30 Neuro: Level of Consciousness is awake, alert, obeys commands, Oriented to person, ha1 place, time, situation. Cardiovascular: Capillary refill < 3 seconds Patient's skin is warm and dry. Respiratory: Airway is patent Respiratory effort is even, unlabored, Respiratory pattern is regular, symmetrical. GI: Abdomen is flat, non-distended. GI: No signs and/or symptoms were reported involving the gastrointestinal system. : No signs and/or symptoms were reported regarding the genitourinary system. Derm: Skin is pink, warm \\T\\ dry. Musculoskeletal: Circulation, motion, and sensation intact. Range of motion: intact in all extremities. 20:30 Reassessment: pt. requesting to be discharged states " I need to go to work". notified [facility] care provider. Vital Signs: 18:34 BP 131 / 82; Pulse 80; Resp 16; Temp 97.8; Pulse Ox 100% on R/A; Weight 54.43 kg; hb Height 5 ft. 2 in. ; Pain 4/10; 19:44 BP 110 / 79; Pulse 77; Resp 19; Pulse Ox 100% on R/A; kd3 20:20 BP 108 / 76; Pulse 84; Resp 16; Pulse Ox 100% on R/A; kd3 18:34 Body Mass Index 21.95 (54.43 kg, 157.48 cm) hb 18:34 Pain Scale: Adult hb ED Course: 18:31 Patient arrived in ED. ts1 18:35 Triage completed. hb 18:35 Arm band placed on. hb 18:36 Arcenio Armas, KEIRA is Primary Nurse. bp 18:36 Fransisco Clay MD is Attending Physician. rt 18:49 Inserted saline lock: 20 gauge in right antecubital area, using aseptic technique. zm Blood collected. 19:03 Ct Stroke Brain Wo Cont In Process Unspecified. EDMS 19:08 CPK Sent. zm 19:08 TSH Sent. zm 19:08 Magnesium Sent. zm 19:08 Test, Serum Sent. zm 19:08 Troponin High Sensitivity Sent. zm 19:08 CMP Sent. zm 19:08 CBC with Diff Sent. zm 19:08 EKG done, by ED staff. zm 19:45 Patient has correct armband on for positive identification. kd3 20:06 Attending Physician role handed off by Fransisco Clay MD rn 20:06 Cayden Alan MD is Attending Physician. rn 20:47 IV discontinued, intact, bleeding controlled, No redness/swelling at site. Pressure ha1 dressing applied. 20:49 Tim Gorman MD is Referral Physician. rn 20:54 No provider procedures requiring assistance completed. kd3 Administered Medications: 20:10 Drug: metoCLOPramide IVP 10 mg Route: IVP; Site: right antecubital; ha1 20:58 Follow up: Response: No adverse reaction kd3 20:13 Drug: diphenhydrAMINE IVP 25 mg Route: IVP; Site: right antecubital; ha1 20:58 Follow up: Response: No adverse reaction kd3 20:13 Drug: NS 0.9% IV 1000 ml Route: IV; Rate: 1 bolus; Site: right antecubital; ha1 20:54 Follow up: IV Status: Completed infusion kd3 20:15 Drug: Acetaminophen PO 1000 mg Route: PO; ha1 20:57 Follow up: Response: No adverse reaction kd3 20:20 Drug: Magnesium Sulfate IVPB 2 grams Route: IVPB; Infused Over: 2 hrs; Site: right ha1 antecubital; 20:57 Follow up: IV Status: Completed infusion kd3 Medication: 19:46 VIS not applicable for this client. kd3 Outcome: 20:49 Discharge ordered by . rn 20:54 Discharged to home ambulatory. kd3 20:54 Condition: good 20:54 Discharge instructions given to patient, family, Instructed on discharge instructions, follow up and referral plans. Demonstrated understanding of instructions, follow-up care. 20:58 Patient left the ED. kd3 Signatures: Dispatcher [employer] EDMS Cayden Alan MD MD rn Baxter, Heather, RN RN hb Peltier, Brian, RN RN bp Doucette, Kyli, RN RN kd3 Светлана Osborne Basia Durant RN RN 1 Fransisco Clay MD MD rt Jumana Correa, PAS PAS ts1 Corrections: (The following items were deleted from the chart) 18:47 18:46 Reassessment: CODE STROKE CALLED, PT TO CT VIA WHEELCHAIR WITH BRYAN CROCKETT hb hb
[2023-02-18 21:04] VITALS: TEMP 97.8; O2SAT 100
[2023-02-18 21:07] VITALS: BP 108/76
--- NOTE | 2023-02-20 14:46 | EKG ---
Test Date: 2023-02-18 Test Time: 18:58:08 Mounter Clarinets: GREG MEASUREMENT RESULTS: Intervals: Rate: 78 [place]: 132 QRSD: 88 QT: 376 QTc: 428 [place]: P: 69 [place]: 132 QRS: 84 T: 37 INTERPRETIVE STATEMENTS: Normal sinus rhythm with sinus arrhythmia Normal ECG Compared to ECG 06/11/2010 16:10:48 No significant changes Electronically Signed On 02-20-23 14:43:51 CDT by Andre Crocker
== END 2023-02-18 20:58 | disposition home or self-care (01) ==
LOC: ER 18:29
DX: G43.119 Migraine with aura, intractable, without status migrainosus (principal)
CPT/HCPCS: 96365; 93005; 85025; 36415; 83735; 82550; 84703; 84443; 84484; 80053; 70450; 96375; 99284; J3475; J2765; J1200; J7030